=== PATIENT | female | born 1965 | race Caucasian/White ===

== ENCOUNTER 2021-05-13 22:13 | Emergency (ER) | payer OTHER ==
[2021-05-13] MEDS ORDERED: DEXAMETHASONE SOD PHOSPHATE 10 MG/ML 1 ML VIAL IVP STA ×2 (22:21→22:57)
[2021-05-13] MEDS ORDERED: KETOROLAC 30 MG/ML 1 ML VIAL IVP STA (22:57)
[2021-05-13] MEDS ORDERED: SODIUM CHLORIDE 0.9% 1,000 ML IV ONE (22:57)
[2021-05-13] MEDS ORDERED: ACETAMINOPHEN TAB 500 MG TAB PO STA (22:57)
--- NOTE | 2021-05-13 22:59 | ED ---
General Adult HPI - General Chief complaint: Shortness of Breath Stated complaint: covid symptoms Time Seen by Provider: 05/13/21 22:15 Source: patient, RN notes reviewed Mode of arrival: ambulatory Limitations: no limitations - History of Present Illness Initial comments: 55 year old female presents emergency Department chief complaint of COVID-19. Patient states symptoms started a few days ago she was seen at [facility] states that she tested positive, chest x-ray which showed pneumonia. Patient states that she did not receive any monoclonal antibodies at a time states that she feels like she is worsened she states that her pulse ox was low at home, she feels very weak, nauseated. Patient's had decreased oral intake does complain of bodyaches and headaches - Related Data Allergies Allergy/AdvReac Type Severity Reaction Status Date / Time meperidine [From Demerol] Allergy Nausea & Verified 05/13/21 22:28 Vomiting morphine AdvReac Nausea & Verified 05/13/21 22:28 Vomiting Review of Systems ROS Statement: Those systems with pertinent positive or pertinent negative responses have been documented in the HPI. ROS Other: All systems not noted in ROS Statement are negative. Past Medical History Additional Past Medical History / Comment(s): mold in lungs History of Any Multi-Drug Resistant Organisms: None Reported Past Surgical History: Section Past Psychological History: No Psychological Hx Reported Smoking Status: Never smoker Past Alcohol Use History: None Reported Past Drug Use History: None Reported General Exam Limitations: no limitations General appearance: alert, in no apparent distress Head exam: Present: atraumatic, normocephalic, normal inspection Eye exam: Present: normal appearance, PERRL, EOMI. Absent: scleral icterus, conjunctival injection, periorbital swelling Respiratory exam: Present: normal lung sounds bilaterally. Absent: respiratory distress, wheezes, rales, rhonchi, stridor Cardiovascular Exam: Present: regular rate, normal rhythm, normal heart sounds. Absent: systolic murmur, diastolic murmur, rubs, gallop, clicks GI/Abdominal exam: Present: soft, normal bowel sounds. Absent: distended, tenderness, guarding, rebound, rigid Neurological exam: Present: alert, oriented X3, CN II-XII intact, motor sensory deficit Skin exam: Present: warm, dry, intact, normal color. Absent: rash Course Vital Signs 05/13/21 05/13/2105/13/21 22:22 22:38 23:15 Temperature 98.7 F Pulse Rate 85 83 Respiratory 20 20 18 Rate Blood Pressure 121/83 149/97 O2 Sat by Pulse 95 93 L Oximetry Medical Decision Making - Medical Decision Making Patient chest x-ray showed bilateral COVID-19 pneumonia. Patient's pulse ox 93%. Patient Agrees to Plan Monoclonal Antibodies Discharged Return for Any Worsening Change Symptoms. - Lab Data Result diagrams: 05/13/21 23:15 05/13/21 23:15 Lab Results 05/13/21 05/13/21 05/13/21 Range/Units 22:37 23:15 23:15 WBC 4.6 (3.8-10.6) k/uL RBC 4.61 (3.80-5.40) m/uL Hgb 13.4 (11.4-16.0) gm/dL Hct 39.7 (34.0-46.0) % MCV 86.2 (80.0-100.0) fL MCH 29.1 (25.0-35.0) pg MCHC 33.8 (31.0-37.0) g/dL RDW 13.0 (11.5-15.5) % Plt Count 170 (150-450) k/uL MPV 8.1 Neutrophils % 73 % Lymphocytes % 23 % Monocytes % 2 % Eosinophils % 0 % Basophils % 0 % Neutrophils # 3.4 (1.3-7.7) k/uL Lymphocytes # 1.1 (1.0-4.8) k/uL Monocytes # 0.1 (0-1.0) k/uL Eosinophils # 0.0 (0-0.7) k/uL Basophils # 0.0 (0-0.2) k/uL Sodium 136 L (137-145) mmol/L Potassium 3.2 L (3.5-5.1) mmol/L Chloride 101 (98-107) mmol/L Carbon Dioxide 24 (22-30) mmol/L Anion Gap 11 mmol/L BUN 10 (7-17) mg/dL Creatinine 0.67 (0.52-1.04) mg/dL Est GFR (CKD-EPI)AfAm >90 (>60 ml/min/1.73 sqM) Est GFR (CKD-EPI)NonAf >90 (>60 ml/min/1.73 sqM) Glucose 117 H (74-99) mg/dL Calcium 9.0 (8.4-10.2) mg/dL Total Bilirubin 0.2 (0.2-1.3) mg/dL AST 32 (14-36) U/L ALT 17 (4-34) U/L Alkaline Phosphatase 54 (38-126) U/L Lactate Dehydrogenase 569 (313-618) U/L C-Reactive Protein 4.9 H (<1.0) mg/dL Total Protein 6.8 (6.3-8.2) g/dL Albumin 3.9 (3.5-5.0) g/dL Coronavirus (PCR) Detected A (Not Detectd) Disposition Clinical Impression: COVID-19 Disposition: HOME SELF-CARE Condition: Stable Instructions (If sedation given, give patient instructions): Coronavirus Disea 2018 (COVID-19) Additional Instructions: Please return to the Emergency Department if symptoms worsen or any other concerns. Is patient prescribed a controlled substance at d/c from ED?: No Referrals: None,Stated [Primary Care Provider] - 1-2 days Time of Disposition: 00:36
[2021-05-13] MEDS ORDERED: ONDANSETRON 4 MG/2 ML VIAL IVP STA (23:15)
[2021-05-13 23:40] LABS: Basophils % (A) 0 %; Eosinophils % (A) 0 %; HCT 39.7 % (34.0-46.0); HGB 13.4 gm/dL (11.4-16.0); Lymphocytes # (A) 1.1 k/uL (1.0-4.8); Lymphocytes % (A) 23 %; MCH 29.1 pg (25.0-35.0); MCHC 33.8 g/dL (31.0-37.0); MCV 86.2 fL (80.0-100.0); Mean Platelet Volume 8.1; Monocytes # (A) 0.1 k/uL (0-1.0); Monocytes % (A) 2 %; Neutrophils # (A) 3.4 k/uL (1.3-7.7); Neutrophils % (A) 73 %; Platelet Count 170 k/uL (150-450); RBC 4.61 m/uL (3.80-5.40); WBC 4.6 k/uL (3.8-10.6)
[2021-05-13 23:58] LABS: ALT 17 U/L (4-34); AST 32 U/L (14-36); African American GFR (CKD) >90 (>60 ml/min/1.73 sqM); Albumin 3.9 g/dL (3.5-5.0); Alkaline Phosphatase 54 U/L (38-126); Anion Gap 11 mmol/L; Blood Urea Nitrogen 10 mg/dL (7-17); C Reactive Protein 4.9 mg/dL (<1.0); Carbon Dioxide 24 mmol/L (22-30); Chloride 101 mmol/L (98-107); Glucose 117 mg/dL (74-99); LDH 569 U/L (313-618); Non-African American GFR(CKD) >90 (>60 ml/min/1.73 sqM); Potassium 3.2 mmol/L (3.5-5.1); Sodium 136 mmol/L (137-145); Total Bilirubin 0.2 mg/dL (0.2-1.3); Total Protein 6.8 g/dL (6.3-8.2)
[2021-05-13 23:59] VITALS: RESP 18
--- NOTE | 2021-05-14 00:09 | XR ---
EXAMINATION TYPE: XR chest 2V DATE OF EXAM: 05/13/2021 COMPARISON: NONE HISTORY: Short of breath. Cough TECHNIQUE: 2 views FINDINGS: There is bilateral patchy perihilar interstitial and airspace infiltrate in the mid and low er lung soto. Heart size is normal. Bony thorax is intact. IMPRESSION: Bilateral patchy pneumonia. Normal heart.
[2021-05-14] MEDS ORDERED: POTASSIUM CHLORIDE ER 20 MEQ TAB.ER PO STA (00:35)
[2021-05-14] MEDS ORDERED: SODIUM CHLORIDE 0.9% 50 ML IVPB ONE (00:45)
[2021-05-14] MEDS ORDERED: SOTROVIMAB (EUA) 500 MG in SODIUM CHLORIDE 0.9% 100 ML IVPB ONE (01:00)
[2021-05-14] MEDS ORDERED: ALPRAZolam 0.5 MG TAB PO STA (02:18)
[2021-05-14 02:25] VITALS: BP 109/68; PULSE 80; TEMP 98.3
== END 2021-05-14 02:25 | disposition home or self-care (01) ==
LOC: EC 22:13
DX: U07.1 COVID-19 (principal)
CPT/HCPCS: 99284; 96374; 96375 ×2; 96361; 36415; 93005; 80053; 83615; 85025; 86140; 87635; 71046; J1100; J2405; J1885; Q0247